=== PATIENT | female | born 1995 | race Hispanic/Latino ===

== ENCOUNTER 2020-10-20 01:13 | Emergency (ER) | payer MEDICAID ==
[2020-10-20] MEDS ORDERED: IPRATROPIUM/ALBUTEROL SULFATE 3 ML AMPUL.NEB IH ONE (01:19)
[2020-10-20] MEDS ORDERED: ALBUTEROL 2.5 MG/3 ML NEBU IH ONE (01:19)
[2020-10-20] MEDS ORDERED: methylPREDNISolone Sod Succinate 125 MG/2 ML INJ IM ONE (01:19)
--- NOTE | 2020-10-20 01:41 | XRay Report ---
XR chest 1V ap INDICATION / CLINICAL INFORMATION: DYSPNEA. COMPARISON: None available. FINDINGS: SUPPORT DEVICES: None. HEART /PULMONARY VASCULATURE: No significant abnormality. LUNGS / PLEURA: Low lung volumes are present. There are mild patchy opacities within the right mid an d lower lung. No pleural effusion or pneumothorax. ADDITIONAL FINDINGS: No significant additional findings. IMPRESSION: Mild patchy airspace opacities within the right mid and lower lung, may reflect acute infectious or i nflammatory pneumonitis. Signer Name: Adrian Denny MD Signed: 10/20/2020 1:37 AM Workstation Name: [id number]
[2020-10-20] MEDS ORDERED: AZITHROMYCIN 250 MG TAB PO ONE (02:04)
[2020-10-20] MEDS ORDERED: cefTRIAXone/NS 1 GM/50 ML 1 GM/50 ML BAG IV ONE (02:04)
[2020-10-20 02:10] VITALS: BP 159/88
== END 2020-10-20 02:30 | disposition left against medical advice (07) ==
LOC: ED 01:13
DX: R06.02 Shortness of breath (principal); Z53.21 Procedure and treatment not carried out due to patient leaving prior to being seen by health care provider
CPT/HCPCS: 71045